=== PATIENT | male | born 1995 | race Caucasian/White ===

== ENCOUNTER 2019-12-08 19:51 | Emergency (ER) | payer OTHER, MEDICAID, SELFPAY ==
[2019-12-08 20:01] VITALS: BP 134/67; PULSE 90; RESP 18; TEMP 36.1; O2SAT 98
[2019-12-08 20:22] LABS: Add Manual Diff / Slide Review NO; Basophils Absolute Auto 100 /uL (0-100); Basophils Percent Auto 0.5 % (0-2); Eosinophils Absolute Auto 300 /uL (0-450); Eosinophils Percent Auto 2.3 % (2-4); Hematocrit 44.1 % (41-53); Hemoglobin 14.5 g/dL (13.5-17.5); Lymphocytes Absolute Auto 3500 /uL (1100-4500); Lymphocytes Percent Auto 26.8 % (25-40); Mean Corpuscular Hemoglobin 29.8 PG (26-34); Mean Corpuscular Volume 90.4 fL (80-100); Monocytes Absolute Auto 1000 /uL (0-900); Monocytes Percent Auto 7.6 % (3-14); Neutrophils Absolute Auto 8300 /uL (1500-7000); Neutrophils Percent Auto 62.8 % (50-75); Platelet Count 511 X10^3/uL (150-400); Red Blood Cell Count 4.87 X10^6/uL (4.5-5.9); Red Cell Distribution Width 13.8 % (11.6-14.8); White Blood Cell Count 13.2 X10^3/uL (4.5-11.0)
[2019-12-08 20:29] LABS: INR 1.1 (0.9-1.3); Prothrombin Time 13.1 SECONDS (10.1-12.7)
[2019-12-08 20:32] LABS: PTT Partial Thromboplastin Tim 37 SECONDS (26.4-36.2)
[2019-12-08 20:34] LABS: Alanine Aminotransferase 27 IU/L (<50); Albumin 4.1 g/dL (3.5-5.0); Albumin Globulin Ratio 1.1 (1.0-2.8); Alkaline Phosphatase 156 U/L (38-126); Aspartate Aminotransferase 25 IU/L (17-59); BUN Creatinine Ratio 21.4 (6-22); Bilirubin Total 0.4 mg/dL (0.2-1.3); Blood Urea Nitrogen 21 mg/dL (9-20); Calcium 9.3 mg/dL (8.4-10.2); Carbon Dioxide 28 mmol/L (22-32); Chloride 105 mmol/L (98-107); Estimated Glomerular Filt Rate > 60.0 mL/min (>60); Globulin 3.8 g/dL (1.7-4.1); Glucose 75 mg/dL (70-100); HEMOLYSIS < 15 (0-50); Lipase 127 U/L (23-300); Potassium 4.2 mmol/L (3.4-5.1); Sodium 139 mmol/L (137-145); Total Protein 7.9 g/dL (6.3-8.2)
--- NOTE | 2019-12-08 21:23 | ED.ABDPAIN ---
HPI - Abdominal Pain General Chief Complaint: Abdominal Pain Stated Complaint: stomach pain Time Seen by Provider: 12/08/19 19:52 Source: patient and family Mode of arrival: Ambulatory Limitations: no limitations History of Present Illness HPI narrative: 24M never smoker with mental health history presents with his mother and the chief complaint of about 1 year of episodes of generalized abdominal pain. He states it is made worse with spicy or acidic foods and is worse at night and when he lays down. He denies N/V or change in bowel habits. He denies any history of alcohol abuse. He states it is worse with motion and improves with rest. He is here today because his mother had similar symptoms with a recent diagnosis of duodenitis. MD complaint: abdominal pain Onset (ago): month(s) Pain Consistency: intermittent Location: periumbilical Severity: moderate Quality: aching Radiation: none Relieving factors: rest Exacerbating factors: eating and movement Associated symptoms: denies other symptoms Related Data Home Medications Medication Instructions Recorded Confirmed alprazolam [Xanax] 0.5 mg PO #0 09/08/16 benztropine [Cogentin] 1 mg #0 09/08/16 metformin [Glucophage XR] 500 mg PO BID #0 09/08/16 risperidone [Risperdal] 0.5 mg PO TID #0 09/08/16 Previous Rx's Medication Instructions Recorded ondansetron [Zofran ODT] 4 mg SUBLINGUAL Q6HP PRN #10 odt 07/08/17 pantoprazole [Protonix] 40 mg PO DAILY #30 tab 12/08/19 Allergies Allergy/AdvReac Type Severity Reaction Status Date / Time No Known Drug Allergies Allergy Verified 12/08/19 20:16 Review of Systems Constitutional Constitutional: Denies chills, Denies fatigue, Denies fever(s), Denies frequent falls, Denies lethargy and Denies weakness Eyes Eyes: Denies change in vision, Denies eye discharge, Denies irritation and Denies loss of vision ENT Ears, Nose, Mouth, and Throat: Denies change in voice, Denies dizziness, Denies neck pain, Denies sore throat and Denies throat swelling Cardiovascular Cardiovascular: Denies chest pain, Denies irregular heart rhythm, Denies lightheadedness, Denies palpitations, Denies dyspnea, Denies dyspnea on exertion and Denies orthopnea Respiratory Respiratory: Denies cough, Denies dyspnea, Denies dyspnea on exertion and Denies wheezing Gastrointestinal Gastrointestinal: Reports abdominal pain, Denies change in bowel habits, Denies diarrhea, Denies nausea and Denies vomiting Musculoskeletal Musculoskeletal: Denies neck pain and Denies numbness Integumentary/Breasts Skin/Breast: Denies pruritus, Denies erythema, Denies rash and Denies wounds Neurologic Neurologic: Denies behavioral changes, Denies confusion, Denies dizziness, Denies frequent falls, Denies loss of vision, Denies numbness and Denies weakness Psychiatric Psychiatric: Denies anxiety, Denies behavioral changes, Denies confusion, Denies depression, Denies homicidal ideation and Denies suicidal ideation Endocrine Endocrine: Denies fatigue, Denies flushing and Denies palpitations Hematologic/Lymphatic Hematologic/Lymphatic: Denies easy bruising Allergic/Immunologic Allergic/Immunologic: Denies urticaria, Denies throat swelling and Denies wheezing Patient History Social History Smoking Status: Never smoker Smoking Status: Never smoker Substance Use Type: does not use Exam Narrative Exam Narrative: GENERAL: [24] year old patient appears stated age. Well-nourished, well-developed patient, in mild distress. HEAD: Atraumatic. Normocephalic. EYES: Pupils equal round and reactive. Extraocular motions intact. No scleral icterus. No injection or drainage. ENT: Nose without bleeding, purulent drainage. Throat without erythema, tonsillar hypertrophy or exudate. Airway patent. NECK: Trachea midline. Non tender CARDIOVASCULAR: Regular rate and rhythm without murmurs, gallops, or rubs. RESPIRATORY: Clear to auscultation. Breath sounds equal bilaterally. No wheezes, rales, or rhonchi. GASTROINTESTINAL: Abdomen soft, mild periumbilical tenderness, nondistended. EXTREMITIES: No edema or joint tenderness. BACK: Nontender without deformity or crepitance. No flank tenderness. NEURO: AOx3. SKIN: No rash or erythema of visible areas Initial Vital Signs Initial Vital Signs: Vital Signs Temperature 97 F L 12/08/19 20:01 Pulse Rate 90 12/08/19 20:01 Respiratory Rate 18 12/08/19 20:01 Blood Pressure 134/67 12/08/19 20:01 Pulse Oximetry 98 12/08/19 20:01 Course Orders Ordered: ED Orders 12/08/19 20:12 Complete Blood Count AUTO DIFF Stat Comprehensive Metabolic Panel Stat Lipase Stat Partial Thromboplastin Time Stat Prothrombin Time INR Stat Discontinued Medications Al Hydrox/Mg Hydrox/Simethicone 20 ml/ Lidocaine HCl 15 ml 0 ml PO NOW ONE Stop: 12/08/19 22:15 Last Admin: 12/08/19 22:25 Dose: 35 ml Documented by: ANDREY Reevaluation(s) Reevaluation #1: patient reports complete resolution of symptoms after GI cocktail. Vital Signs Vital signs: Vital Signs - 8 hr 12/08/19 20:01 12/08/19 22:53 Temperature 97 F L Pulse Rate 90 75 Respiratory Rate 18 12 Blood Pressure 134/67 116/65 Pulse Oximetry 98 97 MDM - Abdominal Pain Lab Data Result diagrams: 12/08/19 20:12 12/08/19 20:12 Labs: Lab Results 12/08/19 12/08/19 12/08/19 Range/Units 20:12 20:12 20:12 WBC 13.2 H (4.5-11.0) X10^3/uL RBC 4.87 (4.5-5.9) X10^6/uL Hgb 14.5 (13.5-17.5) g/dL Hct 44.1 (41-53) % MCV 90.4 (80-100) fL MCH 29.8 (26-34) PG MCHC 33.0 (30-36) % RDW 13.8 (11.6-14.8) % Plt Count 511 H (150-400) X10^3/uL Neut % (Auto) 62.8 (50-75) % Lymph % (Auto) 26.8 (25-40) % Riley % (Auto) 7.6 (3-14) % Eos % (Auto) 2.3 (2-4) % Baso % (Auto) 0.5 (0-2) % Neut # (Auto) 8300 H (4003-5003) /uL Lymph # (Auto) 3500 (7294-1284) /uL Riley # (Auto) 1000 H (0-900) /uL Eos # (Auto) 300 (0-450) /uL Baso # (Auto) 100 (0-100) /uL PT 13.1 H (10.1-12.7) SECONDS INR 1.1 (0.9-1.3) APTT 37 H (26.4-36.2) SECONDS Sodium 139 (137-145) mmol/L Potassium 4.2 (3.4-5.1) mmol/L Chloride 105 (98-107) mmol/L Carbon Dioxide 28 (22-32) mmol/L BUN 21 H (9-20) mg/dL Creatinine 0.98 (0.66-1.25) mg/dL Estimated GFR > 60.0 (>60) mL/min BUN/Creatinine Ratio 21.4 (6-22) Glucose 75 (70-100) mg/dL Calcium 9.3 (8.4-10.2) mg/dL Total Bilirubin 0.4 (0.2-1.3) mg/dL AST 25 (17-59) IU/L ALT 27 (<50) IU/L Alkaline Phosphatase 156 H (38-126) U/L Total Protein 7.9 (6.3-8.2) g/dL Albumin 4.1 (3.5-5.0) g/dL Globulin 3.8 (1.7-4.1) g/dL Albumin/Globulin Ratio 1.1 (1.0-2.8) Lipase 127 (23-300) U/L Point of care testing: Urine Dip Bedside Urine Glucose Negative Bedside Urine Bilirubin + 1 Bedside Urine Ketone +/- 5 Urine Specific Ringle 1.030 Bedside Urine Occult Blood - Negative Bedside Urine pH 5.5 Bedside Urine Protein +/- 15 Bedside Urine Urobilinogen +/- 1mg Bedside Urine Nitrite - Negative Bedside Urine Leukocytes - Negative Esterase MDM Narrative Medical decision making narrative: Multiple etiologies for patient's symptoms considered including: [GERD, pancreatitis, GB disease, bowel obstruction vs. other] Patient's symptoms improved over duration of stay with above-stated therapies. Findings and discharge diagnosis discussed with patient/family followed by verbalization of understanding Return precautions discussed with patient/family whom verbalize understanding. Discharge Plan Departure Patient Disposition: Home Clinical Impression: Epigastric pain Discharge Date/Time: 12/08/19 22:54 Instructions: DI for Dyspepsia Activity Restrictions/Additional Instructions: 1. Drink plenty of fluids with frequent small sips. Avoid fatty foods, acidic foods, dairy, alcohol, nicotine, and caffeine 2. For the next 24 hours a clear liquid diet is advised. After that please employ a brat diet which would include bananas, rice, apples, toast. 3. Please take medications as directed. 4. Please follow-up with your doctor in the next 1-2 days. Call the office for an appointment.I have given you contact info for the [facility] Resource line if you are looking for a new doctor. 5. Please return to the emergency Department for any worsening or persistent symptoms, such as increasing pain or fever. Prescriptions: New pantoprazole [Protonix] 40 mg tablet,delayed release (DR/EC) 40 mg PO DAILY Qty: 30 RF: 0 No Action risperidone [Risperdal] 0.5 MG tablet 0.5 mg PO TID Qty: 0 RF: 0 alprazolam [Xanax] 0.5 MG tablet 0.5 mg PO Qty: 0 RF: 0 benztropine [Cogentin] 2 MG/2 ML solution 1 mg Qty: 0 RF: 0 metformin [Glucophage XR] 500 MG tablet extended release 24 hr 500 mg PO BID Qty: 0 RF: 0 ondansetron [Zofran ODT] 4 MG tablet,disintegrating 4 mg Sublingual Q6HP PRNQty: 10 RF: 0 Referrals: [facility] [Outside] Natalie Humphries PA-C [Primary Care Provider] -
[2019-12-08] MEDS: MAG HYDROX/ALUMINUM/SIMETH SUS 20 ML, LIDOCAINE VISCOUS 2% 15 ML PO (22:25)
[2019-12-08 22:53] VITALS: BP 116/65; PULSE 75; RESP 12; O2SAT 97
== END 2019-12-08 22:54 | disposition home or self-care (01) ==
PROVIDERS: Emergency Provider Emergency Medicine; Family Provider Physician Assistant Medical; PCP Physician Assistant Medical
DX: R10.13 Epigastric pain (principal)
CPT/HCPCS: 36415; 80053; 81003; 83690; 85025; 85610; 85730; 99283